=== PATIENT | female | born 1990 | race Caucasian/White ===

== ENCOUNTER 2017-08-11 17:27 | Emergency (ER) | payer MEDICAID ==
[~2017-08-11] VITALS: Ht 144.8 cm; Wt 60.8 kg
[2017-08-11 17:34] VITALS: Ht 144.8 cm; Wt 60.8 kg
[2017-08-11 21:11] VITALS: BP 101/70
== END 2017-08-11 21:11 | disposition home or self-care (01) ==
LOC: ED 17:27
DX: J02.0 Streptococcal pharyngitis (principal)
CPT/HCPCS: J0561; J1100; J1885; J7030

== ENCOUNTER 2018-06-12 18:48 | Emergency (ER) | payer MEDICAID ==
[~2018-06-12] VITALS: Ht 147.3 cm; Wt 52.6 kg
[2018-06-12 19:09] VITALS: Ht 147.3 cm; Wt 52.6 kg
[2018-06-12 22:31] VITALS: BP 99/56
[2018-06-12 22:52] LABS: UA SPECIFIC GRAVITY >=1.030 (1.005-1.035); microscopic required? YES; urine erythrocyte TRACE (NEGATIVE)
== END 2018-06-12 23:19 | disposition home or self-care (01) ==
LOC: ED 18:48
PROVIDERS: Specialist
DX: N39.0 Urinary tract infection, site not specified (principal); N76.0 Acute vaginitis; Z98.890 Other specified postprocedural states
CPT/HCPCS: 87491; 87591; Q0162

== ENCOUNTER 2018-07-19 17:36 | Emergency (ER) | payer MEDICAID ==
[~2018-07-19] VITALS: Ht 152.4 cm; Wt 51.7 kg
[2018-07-19 17:57] VITALS: Ht 152.4 cm; Wt 51.7 kg
[2018-07-19 18:39] LABS: UA SPECIFIC GRAVITY >=1.030 (1.005-1.035); microscopic required? YES; urine erythrocyte NEGATIVE (NEGATIVE)
[2018-07-20 00:04] VITALS: BP 101/65
== END 2018-07-19 23:20 | disposition home or self-care (01) ==
LOC: ED 17:36
PROVIDERS: Emergency Medicine
DX: R10.2 Pelvic and perineal pain (principal)
CPT/HCPCS: J1885

== ENCOUNTER 2018-12-26 21:14 | Emergency (ER) | payer MEDICAID ==
[~2018-12-26] VITALS: Ht 152.4 cm; Wt 54.0 kg
[2018-12-26 21:34] VITALS: BP 101/62; Ht 152.4 cm; Wt 54.0 kg
== END 2018-12-26 23:13 | disposition home or self-care (01) ==
LOC: ED 21:14
DX: H66.93 Otitis media, unspecified, bilateral (principal); J06.9 Acute upper respiratory infection, unspecified
CPT/HCPCS: J1885

== ENCOUNTER 2019-04-17 15:15 | Emergency (ER) | payer MEDICAID ==
[~2019-04-17] VITALS: Ht 152.4 cm; Wt 54.9 kg
[2019-04-17 15:24] VITALS: Ht 152.4 cm; Wt 54.9 kg
[2019-04-17 17:19] LABS: BASOPHIL % 0.4 % (0-2); PLATELET COUNT 278 x10^3mcL (130-400); RED CELL DISTRIBUTION WIDTH 12.3 % (11.5-14.5)
[2019-04-17 17:21] VITALS: BP 90/52
== END 2019-04-17 19:23 | disposition home or self-care (01) ==
LOC: ED 15:15
PROVIDERS: Emergency Medicine
DX: O20.0 Threatened abortion (principal)
CPT/HCPCS: 36415; Q0092